=== PATIENT | male | born 2000 | race Caucasian/White ===

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

== ENCOUNTER 2020-10-19 22:08 | Emergency (ER) | payer OTHER ==
[2020-10-19 22:12] VITALS: BP 125/81; PULSE 94; RESP 18; TEMP 98.4
[2020-10-19] MEDS ORDERED: IBUPROFEN 600 MG STARTER PACK 4 TAB BTL PO STA (22:27)
--- NOTE | 2020-10-19 22:41 | ED ---
Abdominal Pain HPI - General Chief Complaint: Abdominal Pain Stated Complaint: rib pain Time Seen by Provider: 10/19/20 22:18 Source: patient Mode of arrival: ambulatory Limitations: no limitations - History of Present Illness Initial Comments: 20 year-old male patient presents to the emergency department for evaluation of left rib pain. Patient states that his friend was cracking his back. States he pressed down on his back when he was lying flat on the ground. States that he heard a crack and started having rib pain. Denies any shortness of breath or hemoptysis. Denies any increased pain with inspiration. Denies taking anything for pain. Denies any other injuries or concerns. - Related Data Home Medications Medication Instructions Recorded Confirmed No Known Home Medications 10/19/20 10/19/20 Allergies Allergy/AdvReac Type Severity Reaction Status Date / Time No Known Allergies Allergy Verified 10/19/20 22:31 Review of Systems ROS Statement: Those systems with pertinent positive or pertinent negative responses have been documented in the HPI. ROS Other: All systems not noted in ROS Statement are negative. Past Medical History Past Medical History: No Reported History History of Any Multi-Drug Resistant Organisms: None Reported Past Surgical History: No Surgical Hx Reported Past Psychological History: Depression Smoking Status: Vaper Past Alcohol Use History: None Reported Past Drug Use History: None Reported General Exam Limitations: no limitations General appearance: alert, in no apparent distress, other (This is a well-developed, well-nourished adult male patient in no acute distress. Vital signs upon presentation are temperature 98.4F, pulse 94, respirations 18, blood pressure 125/81, pulse ox 98% on room air.) Respiratory exam: Present: normal lung sounds bilaterally, chest wall tenderness (Left lateral ribs). Absent: respiratory distress, wheezes, rales, rhonchi, stridor Cardiovascular Exam: Present: regular rate, normal rhythm, normal heart sounds. Absent: systolic murmur, diastolic murmur, rubs, gallop, clicks GI/Abdominal exam: Present: soft, normal bowel sounds. Absent: distended, tenderness, guarding, rebound, rigid Neurological exam: Present: alert, oriented X3, CN II-XII intact Psychiatric exam: Present: normal affect, normal mood Skin exam: Present: warm, dry, intact, normal color. Absent: rash Course Vital Signs 10/19/20 22:10 Temperature 98.4 F Pulse Rate 94 Respiratory 18 Rate Blood Pressure 125/81 O2 Sat by Pulse 98 Oximetry Medical Decision Making - Medical Decision Making 20-year-old male patient presented to the emergency department today for evaluation of left rib pain. Physical examination did reveal mild tenderness over the left anterolateral lower ribs. Lungs are clear to auscultation with good air movement. Chest x-ray with left rib series was obtained and showed no evidence for acute abnormalities. He was given ibuprofen here in the department. Upon reevaluation is resting comfortably in bed. Vital signs within normal range her to be discharged follow-up the primary care physician for recheck in 1-2 days. Return parameters were discussed in detail. He verbalizes understanding and agrees with this plan. My attending is Dr. Hammond. - Radiology Data Radiology results: report reviewed, image reviewed 5 views of the left ribs and chest are obtained. Report was reviewed in its entirety. Impression by Dr. Chavez shows normal chest. No rib fracture. Cervical ribs noted. Disposition Clinical Impression: Rib pain on left side Disposition: HOME SELF-CARE Condition: Good Instructions (If sedation given, give patient instructions): Costochondritis (ED) Additional Instructions: Apply ice to the painful areas. Take tylenol and motrin for pain control. Follow up with the primary care physician for recheck in 1-2 days. Return for any new, worsening, or concerning symptoms. Is patient prescribed a controlled substance at d/c from ED?: No Referrals: Marisa Puckett DO [Primary Care Provider] - 1-2 days Time of Disposition: 22:56
--- NOTE | 2020-10-19 22:46 | XR ---
EXAMINATION TYPE: XR ribs LT w pa chest xray DATE OF EXAM: 10/19/2020 COMPARISON: NONE HISTORY: Left-sided rib pain TECHNIQUE: 5 views FINDINGS: Heart and mediastinum are normal. Lungs are clear. Diaphragm is normal. There is no pleural effusion or pneumothorax. Left ribs appear intact. There are bilateral cervical ribs. IMPRESSION: Normal chest. No rib fracture. Cervical ribs noted.
== END 2020-10-19 23:12 | disposition home or self-care (01) ==
LOC: EC 22:08
DX: R07.81 Pleurodynia (principal); F32.9 Major depressive disorder, single episode, unspecified; F17.290 Nicotine dependence, other tobacco product, uncomplicated
CPT/HCPCS: 99283

== ENCOUNTER → 2021-03-26 | Outpatient (CLI) | payer BC ==
[2021-03-26 18:55] LABS: T4, Free (Free Thyroxine) 1.4 ng/dL (0.830-1.430)
[2021-03-26 19:13] LABS: Thyroid Peroxidase Antibodies <9.0 U/mL (0.0-33.0)
== END | disposition home or self-care (01) ==
LOC: LABWHC1 13:44
PROVIDERS: ATTEND Internal Medicine Endocrinology, Diabetes & Metabolism
DX: E03.9 Hypothyroidism, unspecified (principal)
CPT/HCPCS: 36415; 84439; 84443; 86376; 86800

== ENCOUNTER → 2021-05-08 | Outpatient (CLI) | payer BC ==
[2021-05-08 19:13] LABS: Prolactin 9.9 ng/mL (2.100-17.700); T4, Free (Free Thyroxine) 1.35 ng/dL (0.830-1.430)
== END | disposition home or self-care (01) ==
LOC: LABWHC1 12:18
PROVIDERS: ATTEND Internal Medicine Endocrinology, Diabetes & Metabolism
DX: E03.9 Hypothyroidism, unspecified (principal); R53.83 Other fatigue
CPT/HCPCS: 36415; 84146; 84403; 84439; 84443

== ENCOUNTER → 2021-06-06 | Outpatient (CLI) | payer BC ==
[2021-06-06 13:25] LABS: HCT 49.4 % (39.0-53.0); HGB 16.5 gm/dL (13.0-17.5); MCH 30.3 pg (25.0-35.0); MCHC 33.4 g/dL (31.0-37.0); MCV 90.7 fL (80.0-100.0); Mean Platelet Volume 7.4; Platelet Count 205 k/uL (150-450); RBC 5.44 m/uL (4.30-5.90); RDW 13.5 % (11.5-15.5); WBC 4.9 k/uL (4.0-11.0)
[2021-06-06 14:34] LABS: RBC Morphology Normal
[2021-06-06 15:19] LABS: Band Neutrophils % 3 %; Eosinophils # (M) 0.15 k/uL (0-0.7); Lymphocytes # (M) 0.74 k/uL (1.0-4.8); Monocytes # (M) 0.29 k/uL (0-1.0); Neutrophils % (M) 73 %; Nucleated Red Blood Cells 0 /100 WBC (0-0); Total Cells Counted 100
[2021-06-06 19:04] LABS: Albumin 4.9 g/dL (3.8-4.9); Albumin/Globulin Ratio 1.81 (1.60-3.17); Anion Gap 8.5 mmol/L (10.00-18.00); BUN/Creat Ratio 8.8 Ratio (12.00-20.00); Blood Urea Nitrogen 8.8 mg/dL (9.0-27.0); Calcium 9.7 mg/dL (8.7-10.3); Carbon Dioxide 29.5 mmol/L (20.0-27.5); Globulin 2.7 g/dL (1.6-3.3); Non-African American GFR(CKD) 107.9 (60.0-200.0); Potassium 4.4 mmol/L (3.5-5.5); Total Bilirubin 1.7 mg/dL (0.30-1.20); Total Protein 7.6 g/dL (6.2-8.2)
== END | disposition home or self-care (01) ==
LOC: LABWHC1 11:33
PROVIDERS: ATTEND Physician Assistant
DX: R59.1 Generalized enlarged lymph nodes (principal); I47.1 Supraventricular tachycardia
CPT/HCPCS: 36415; 80053; 85025

== ENCOUNTER → 2021-06-17 | Outpatient (CLI) | payer BC ==
--- NOTE | 2021-06-17 15:45 | CA ---
Transthoracic Echo Report Name: Candido Willams Age: 20 Gender: M : 2000 Exam Date: 06/17/2021 08:42 Exam Location: [facility] Ht (in): 72 Wt (lb): 175 Ordering Physician: Marry Porras DO Attending/Referring Phys: Lorie Cehney PAC Electronic Heat Seal Operator Jacinta Gamble RDCS Procedure CPT: Indications: I47.1 SVT Cardiac Hx: No cardiac hx. Technical Quality: Good Contrast 1: N/A Total Dose (mL): Contrast 2: Total Dose (mL): MEASUREMENTS (Male / Female) Normal Values 2D ECHO LV Diastolic Diameter PLAX 4.9 cm 4.2 - 5.9 / 3.9 - 5.3 cm LV Systolic Diameter PLAX 3.6 cm IVS Diastolic Thickness 0.9 cm 0.6 - 1.0 / 0.6 - 0.9 cm LVPW Diastolic Thickness 1.2 cm 0.6 - 1.0 / 0.6 - 0.9 cm LV Relative Wall Thickness 0.4 RV Internal Dim ED PLAX 3.1 cm LA Systolic Diameter LX 3.8 cm 3.0 - 4.0 / 2.7 - 3.8 cm LA Volume 71.8 cm??? 18 - 58 / 22 - 52 cm??? M-MODE Aortic Root Diameter MM 2.9 cm LA Systolic Diameter MM 3.6 cm LA Ao Ratio MM 1.3 MV E Point Septal Separation 0.4 cm AV Cusp Separation MM 2.0 cm DOPPLER MV Area PHT 5.2 cm??? Mitral E Point Velocity 71.6 cm/s Mitral A Point Velocity 40.7 cm/s Mitral E to A Ratio 1.8 MV Deceleration Time 145.2 ms FINDINGS Left Ventricle Normal Left ventricular size, wall thickness, systolic function with no obvious regional wall motion abnormalities. Normal Left ventricular diastolic filling pattern. Left ventricular ejection fraction is estimated at 55-60%. Right Ventricle Normal right ventricular size and function. Right Atrium Normal right atrial size. Left Atrium . Mildly increased left atrial area. Mitral Valve Mild mitral regurgitation. Aortic Valve Trileaflet aortic valve. No aortic valve stenosis or regurgitation. Tricuspid Valve Structurally normal tricuspid valve. Pulmonic Valve Structurally normal pulmonic valve. Pericardium Normal pericardium. Aorta Normal size aortic root and proximal ascending aorta. CONCLUSIONS Normal LV size and systolic function Previewed by: Dr. Max Zamora MD (Electronically Signed) Final Date: 17 Jun 2021 15:44
== END | disposition home or self-care (01) ==
LOC: RADECHMAIN 08:33
PROVIDERS: ATTEND Family Medicine
DX: I47.1 Supraventricular tachycardia (principal)
CPT/HCPCS: 93306

== ENCOUNTER → 2021-06-19 | Outpatient (CLI) | payer BC ==
--- NOTE | 2021-06-19 08:11 | CT ---
EXAMINATION TYPE: CT chest wo con DATE OF EXAM: 06/19/2021 COMPARISON: None HISTORY: Congenital deformities of chest CT DLP: 250.[address] of the chest was performed with lung and mediastinal window settings submitted. The la ck of contrast limits evaluation of the vascular, mediastinal and parenchymal structures including th e upper abdomen. LUNGS: The lungs are clear and free of infiltrate. No atelectasis. No pulmonary nodule or mass is de tected. No pleural effusion. No CT evidence of interstitial lung disease. MEDIASTINUM/TRISHA: Thoracic aorta is of normal caliber with limited evaluation given lack of contrast . The heart is not enlarged. No evidence for mediastinal mass. No lymph nodes greater than 1cm. UPPER ABDOMEN: No significant abnormality is seen. OTHER: Pectoralis musculature appear symmetric bilaterally. IMPRESSION: 1. No significant abnormality appreciated.
== END | disposition home or self-care (01) ==
LOC: RADCTMAIN 07:00
PROVIDERS: ATTEND Family Medicine
DX: Q67.8 Other congenital deformities of chest (principal)
CPT/HCPCS: 71250

== ENCOUNTER → 2021-06-30 | Outpatient (CLI) | payer BC ==
[2021-06-30 22:57] LABS: HCT 47.9 % (39.6-50.0); HGB 15.6 g/dL (13.0-17.0); MCH 29.2 pg (27.0-32.0); MCHC 32.6 g/dL (32.0-37.0); MCV 89.7 fL (80.0-97.0); Mean Platelet Volume 10.6 fL (9.5-12.2); NRBC Per 100 WBC 0 /100 WBCS (0.0-0.0); Platelet Count 225 X 10*3/uL (140-440); RBC 5.34 X 10*6/uL (4.40-5.60); RDW 12.4 % (11.5-14.5); WBC 5.15 X 10*3/uL (4.50-10.00)
[2021-07-01 00:37] LABS: Creatine Kinase 162 U/L (35-257); Magnesium 2.3 mg/dL (1.5-2.4)
[2021-07-01 00:45] LABS: African American GFR (CKD) 125.5 (60.0-200.0); Blood Urea Nitrogen 8.7 mg/dL (9.0-27.0); Carbon Dioxide 25.6 mmol/L (20.0-27.5); Chloride 103 mmol/L (96-109); Non-African American GFR(CKD) 108.3 (60.0-200.0); Potassium 4.2 mmol/L (3.5-5.5); Sodium 143 mmol/L (135-145)
[2021-07-01 04:27] LABS: Chol/HDL Ratio 3.23 Ratio; LDL Cholesterol,Calculated 95.1 mg/dL (0.0-131.0); VLDL Calculation 14.62 mg/dL (5.00-40.00)
== END | disposition home or self-care (01) ==
LOC: LABWHC1 15:13
PROVIDERS: ATTEND Internal Medicine Clinical Cardiac Electrophysiology
DX: I47.1 Supraventricular tachycardia (principal); R07.9 Chest pain, unspecified; R06.02 Shortness of breath; R00.2 Palpitations
CPT/HCPCS: 36415; 80051; 80061; 82550; 82565; 83735; 83880; 84439; 84443; 84484; 84520; 85027

== ENCOUNTER → 2021-08-26 | Outpatient (CLI) | payer BC ==
[2021-08-26 19:04] LABS: C Reactive Protein <0.30 mg/dL (0.00-0.80)
== END | disposition home or self-care (01) ==
LOC: LABWHC1 12:42
PROVIDERS: ATTEND Internal Medicine Clinical Cardiac Electrophysiology
DX: M25.50 Pain in unspecified joint (principal); E55.9 Vitamin D deficiency, unspecified
CPT/HCPCS: 36415; 82306; 85652; 86140

== ENCOUNTER → 2021-08-29 | Outpatient (CLI) | payer BC ==
--- NOTE | 2021-08-29 21:06 | MR ---
EXAMINATION TYPE: MR brain wo con DATE OF EXAM: 08/29/2021 8:59 PM COMPARISON: NONE HISTORY: Dizziness, family history of MS Multiplanar and multispin-echo imaging of the brain was performed . The ventricles, basal cisterns and sulci overlying the cerebral convexities are within normal limits. There is no evidence for midline shift or mass effect. Acute intracranial hemorrhage or extra-axial collection is not evident. The brain parenchyma reveals no abnormal increased signal. No acute edema is identified. The paranasal sinuses and mastoid air cells are well-aerated. IMPRESSION: Unremarkable MRI of the brain.
== END | disposition home or self-care (01) ==
LOC: RADMRIMAIN 18:43
PROVIDERS: ATTEND Family Medicine
DX: R42 Dizziness and giddiness (principal); R41.89 Other symptoms and signs involving cognitive functions and awareness; Z82.0 Family history of epilepsy and other diseases of the nervous system
CPT/HCPCS: 70551